=== PATIENT | male | born 2000 | race Caucasian/White ===

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

== ENCOUNTER → 2022-09-29 | Outpatient (CLI) | payer SELFPAY ==
[~2022-09-29] MED LIST changes: +DEXA4 PO; +LEVE500 PO; +Veetids 500500 MG PO
[2022-09-29 14:34] LABS: BASOPHILS ABSOLUTE AUTO 0.04 K/mm3 (0.00-0.23); BASOPHILS PERCENT AUTO 0 % (0-2); EOSINOPHILS PERCENT AUTO 3 % (0-6); Hematocrit 48.5 % (37.0-53.0); Hemoglobin 16.6 g/dL (13.5-17.5); IMMATURE GRAN ABSOLUTE AUTO 0.04 K/mm3 (0.00-0.10); IMMATURE GRAN PERCENT AUTO 0 % (0-1); LYMPHOCYTES ABSOLUTE AUTO 1.66 K/mm3 (0.84-5.20); LYMPHOCYTES PERCENT AUTO 19 % (21-46); MONOCYTES ABSOLUTE AUTO 0.95 K/mm3 (0.16-1.47); MONOCYTES PERCENT AUTO 11 % (4-13); Mean Corpuscular HGB 31.1 pg (26.0-34.0); Mean Corpuscular HGB Conc 34.2 g/dL (31.5-36.5); Mean Corpuscular Volume 91 fL (80-100); Mean Platelet Volume 11.1 fL (9.1-12.4); NEUTROPHILS ABSOLUTE AUTO 5.91 K/mm3 (1.96-9.15); NEUTROPHILS PERCENT AUTO 66 % (41-73); Platelet Count 232 K/mm3 (150-400); RDW Coefficient Variation 12.9 % (11.7-14.2); RDW Standard Deviation 42.5 fL (35.1-46.3); Red Blood Cell Count 5.33 M/mm3 (4.30-5.90)
== END | disposition home or self-care (01) ==
LOC: LAB SHORT 11:05 → LAB 11:05
PROVIDERS: Family Medicine
DX: R56.9 Unspecified convulsions (principal)
CPT/HCPCS: 80177; 85025

== ENCOUNTER 2023-09-28 10:41 | Day surgery (SDC) | payer OTHER ==
[~2023-09-28] VITALS: Ht 193 cm; Wt 113.8 kg
[2023-09-28] MEDS ORDERED: Tranexamic Acid 100 ML IV ONE (11:18)
[2023-09-28] MEDS ORDERED: CeFAZolin Sodium 2,000 MG VIAL ONE (11:20)
[2023-09-28] MEDS ORDERED: Lactated Ringer's 1,000 ML IV ONE ×3 (11:20→14:56)
[2023-09-28] MEDS ORDERED: NS 50 ML IV ONE (11:20)
[2023-09-28] MEDS ORDERED: OMEP20ER PO (12:07)
[2023-09-28] MEDS ORDERED: FentaNYL Citrate 50 MCG/ML 2 ML Injection ONE (12:24)
[2023-09-28] MEDS ORDERED: Midazolam HCl 1MG / ML 2ML Vial ONE (12:24)
[2023-09-28] MEDS ORDERED: propofoL 20 ML IV ONE (12:24)
[2023-09-28] MEDS ORDERED: Rocuronium Bromide 10 MG/ML 5ML Injection IV ONE (13:13)
--- NOTE | 2023-09-28 13:23 | NUR ---
09/28/23 1323 Samantha Toure RIGHT SHOULDER INTRASCALEING BLOCK DONE IN PREOP BY KELLEY BULLOCK. TIME OUT AT 1300. START AT 1307. END AT 1311. PATIENT TOLERATED WELL.
[2023-09-28] MEDS ORDERED: EPINEPhrine HCl 1 MG/ML 1ML Amp XX ONE (14:00)
[2023-09-28] MEDS ORDERED: Lidocaine 1%-Epineph 1:100000 20 ML MDV INJ ONE (14:00)
[2023-09-28] MEDS ORDERED: HYDROmorphone HCl/Pf 1MG SYR ONE (14:05)
[2023-09-28] MEDS ORDERED: Labetalol HCL 5 MG/ML 4ML Injection (Single Dose) ONE (14:06)
--- NOTE | 2023-09-28 14:10 | NUR ---
09/28/23 1410 Parul Ruggiero DOSE OF TXA ADMINISTERED IN THE OR BY ANESTHESIA AT 1359. 1MG OF EPI ADDED TO EACH OF THE FIRST THREE BAGS OF LR FOR IRRIGATION AT THE OPSITE. 3MG TOTAL.
[2023-09-28] MEDS ORDERED: Dexamethasone Sod Phos 10 MG/ML 1ML VIAL ONE (14:24)
--- NOTE | 2023-09-28 16:21 | NUR ---
09/28/23 1621 Kinsey Corona PT ALERT AND COOPERATIVE, VERY PLEASANT. PT DENIES ANY PAIN, NO NAUSEA. PT STATED THAT HE JUST FEELS A LITTLE "LOOPY". PT ON RA, SPO2 AT 96%. VSS, PT ABLE TO MAKE NEEDS KNOWN. WCTM.
[2023-09-28 16:30] VITALS: BP 137/99
== END 2023-09-28 17:00 | disposition home or self-care (01) ==
LOC: ORSCSDS 10:41
PROVIDERS: Orthopaedic Surgery Sports Medicine
PROC: 0LM14ZZ Reattachment of Right Shoulder Tendon, Percutaneous Endoscopic Approach (ICD-10-PCS; principal; 2023-09-28 12:15)
PROC: 0PU Upper Bones, Supplement (ICD-10-PCS; principal; 2023-09-28 12:15)
DX: M24.411 Recurrent dislocation, right shoulder (principal); S43.431A Superior glenoid labrum lesion of right shoulder, initial encounter; G40.909 Epilepsy, unspecified, not intractable, without status epilepticus; E66.9 Obesity, unspecified; Z68.30 Body mass index [BMI] 30.0-30.9, adult; Z79.899 Other long term (current) drug therapy; F17.210 Nicotine dependence, cigarettes, uncomplicated
CPT/HCPCS: C1713; J0171; J0690; J1100; J1170; J2250; J2704; J3010; J7120

== ENCOUNTER 2024-04-15 22:37 | Emergency (ER) | payer OTHER ==
[~2024-04-15] VITALS: Ht 193 cm; Wt 117.9 kg
[~2024-04-15 22:37] MED LIST changes: +OMEP20ER PO
[2024-04-15 23:30] VITALS: BP 169/100
== END 2024-04-15 23:58 | disposition home or self-care (01) ==
LOC: ER 22:37
DX: S50.812A Abrasion of left forearm, initial encounter (principal); S60.413A Abrasion of left middle finger, initial encounter; S60.415A Abrasion of left ring finger, initial encounter; V89.2XXA Person injured in unspecified motor-vehicle accident, traffic, initial encounter
CPT/HCPCS: 99284